=== PATIENT | male | born 1965 | race Caucasian/White ===

== ENCOUNTER 2019-09-05 07:45 | Day surgery (SDC) | payer OTHER ==
[2019-09-05] VITALS (26 sets, daily range): BP systolic 106–144; BP diastolic 37–87
[~2019-09-05] VITALS: Ht 188 cm; Wt 73.5 kg
[2019-09-05] MEDS ORDERED: MULT-1085 PO (08:30)
[2019-09-05] MEDS ORDERED: CHOL500049 PO (08:30)
[2019-09-05] MEDS ORDERED: CYAN500T63 PO (08:30)
[2019-09-05] MEDS ORDERED: ACET325T55 PO (08:30)
[2019-09-05] MEDS ORDERED: HYDR12.55 PO (08:30)
[2019-09-05] MEDS ORDERED: LISI-600 PO (08:30)
[2019-09-05] MEDS ORDERED: codeine PO (08:30)
[2019-09-05] MEDS ORDERED: ROSU20TA2 PO (08:30)
[2019-09-05] MEDS ORDERED: DIPH50CA3 PO (08:30)
[2019-09-05] MEDS ORDERED: normal saline 1000ml 1,000 ML IV SCH (08:30)
[2019-09-05 09:22] LABS: ALBUMIN 3.7 G/DL (3.4-5.0); ANION GAP 9 (8-16); BASOPHILS # (AUTO) 0.1 X10'3 (0-0.2); BASOPHILS % (AUTO) 1.2 % (0-1); BLOOD UREA NITROGEN 24 MG/DL (7-18); BUN/CREATININE RATIO 16.2 (5.4-32.0); CALCIUM 9.4 MG/DL (8.5-10.1); CHLORIDE 108 MMOL/L (99-107); CREATININE 1.48 MG/DL (0.60-1.10); EOSINOPHILS # (AUTO) 0.2 X10'3 (0-0.9); EOSINOPHILS % (AUTO) 2.3 % (0-6); GLUCOSE 92 MG/DL (70-104); HEMATOCRIT 35.2 % (42.0-52.0); LYMPHOCYTES # (AUTO) 2.6 X10'3 (1.1-4.8); LYMPHOCYTES % (AUTO) 34.1 % (21-51); MEAN CORPUSCULAR HEMOGLOBIN 29.9 PG (27.0-31.0); MEAN CORPUSCULAR VOLUME 87.8 FL (78-98); MEAN PLATELET VOLUME 8.2 FL (7.4-10.4); MONOCYTES # (AUTO) 0.5 X10'3 (0-0.9); MONOCYTES % (AUTO) 6.9 % (2-12); NEUTROPHILS # (AUTO) 4.2 X10'3 (1.8-7.7); NEUTROPHILS % (AUTO) 55.5 % (42-75); PLATELET COUNT 261 X10'3 (140-440); POTASSIUM 3.9 MMOL/L (3.5-5.1); RED BLOOD COUNT 4.01 X10'6 (4.70-6.10); RED CELL DISTRIBUTION WIDTH 17.5 % (11.5-14.5); SODIUM 141 MMOL/L (135-145); TOTAL CARBON DIOXIDE 24.2 MMOL/L (24-32); WHITE BLOOD COUNT 7.5 X10'3 (4.5-11.0); eGFR 49 ML/MIN
--- NOTE | 2019-09-05 09:30 | NUR ---
Pt has NS running at 75ml/hr.
[2019-09-05] MEDS ORDERED: midazolam 2 mg/2 ml injection ONE (09:45)
[2019-09-05] MEDS ORDERED: fentaNYL/PF 50MCG/1 ML 2ML syringe ONE ×3 (09:45→11:02)
[2019-09-05] MEDS ORDERED: sodium chloride 0.45% 1,000 ML IV SCH (09:54)
[2019-09-05 11:00] LABS: ANISOCYTOSIS 1+; PLATELET ESTIMATE NORMAL
[2019-09-05] MEDS ORDERED: potassium CL 10mEq/100ml bag 100 ML IV PRN ×2 (11:40)
[2019-09-05] MEDS ORDERED: magnesium Cl slow-release 64mg tablet PO PRN (11:40)
[2019-09-05] MEDS ORDERED: acetaminophen 325mg tablet PO PRN ×2 (11:40→23:50)
[2019-09-05] MEDS ORDERED: ondansetron/PF 4mg/2ml inj IV PRN (11:40)
[2019-09-05] MEDS ORDERED: magnesium 2GM in 50ml NS 50 ML IV PRN (11:40)
[2019-09-05] MEDS ORDERED: magnesium 4gm in 100ml NS 100 ML IV PRN (11:40)
[2019-09-05] MEDS ORDERED: morphine 2 MG/ML inj. syringe IV PRN (11:40)
[2019-09-05] MEDS ORDERED: potassium Cl 20 mEq SR tablet PO PRN ×2 (11:40)
[2019-09-05] MEDS ORDERED: ACET-1059 PO (11:49)
--- NOTE | 2019-09-05 11:58 | NUR ---
pt returned to floor with chest tube connected to L Lateral chest, Drsg CD&I. no s/s of bleeding. pt hooked to Low continuous suction per MD. Pt sitting up in bed. VS stable as charted. pt has NS running at 75ml/hr as ordered. Pt requesting his breakfast which I will bring to him and continue to monitor.
[2019-09-05] MEDS: HYDROcodone/acetaminophen 5mg/325mg tablet PO PRN ×2 (12:24→19:46)
--- NOTE | 2019-09-05 13:08 | NUR ---
Dr. Mccullough at bedside.
--- NOTE | 2019-09-05 13:10 | NUR ---
Called to give report on Medical, Charge states assigned RN will call back.
[2019-09-05] MEDS ORDERED: LISI10TA4 PO (13:21)
[2019-09-05] MEDS ORDERED: CHOL100025 PO (13:29)
[2019-09-05] MEDS: normal saline 1000ml 1,000 ML IV SCH ×2 (13:50→21:02)
--- NOTE | 2019-09-05 14:09 | NUR ---
Called back to give report, was told RNRashmi would call me back in 5 min.
--- NOTE | 2019-09-05 14:27 | NUR ---
Problems reprioritized. Patient report given, questions answered & plan of care reviewed with Rashmi TRONCOSO.
--- NOTE | 2019-09-05 14:33 | NUR ---
I have received report from KARYNA Mcghee from [facility] stay and had the opportunity to ask questions and assume patient care.
--- NOTE | 2019-09-05 18:43 | NUR ---
Patient in room [facility]. I have received report from Ny TRONCOSO and had the opportunity to ask questions and assume patient care.
--- NOTE | 2019-09-05 19:10 | NUR ---
Problems reprioritized. Patient report given, questions answered & plan of care reviewed with KARYNA Vázquez. Pt resting comfortably. C/O chest pain, medicated PRN with good result. chest tube in place dressing clean and dry, less than 10 ml of serosanguineous fluids collected; no SOB noted.
[2019-09-05] MEDS: K and/or MAG REPLACEMENT MC SCH (20:00)
[2019-09-05] MEDS ORDERED: acetaminophen w/codeine (30MG) #3 tablet PO PRN (23:50)
[2019-09-05] MEDS ORDERED: diphenhydrAMINE 25mg capsule PO PRN (23:50)
[2019-09-06] VITALS: BP 143/80
[2019-09-06] MEDS: HYDROcodone/acetaminophen 5mg/325mg tablet PO PRN ×2 (05:35→11:39)
[2019-09-06 06:15] LABS: BASOPHILS # (AUTO) 0.1 X10'3 (0-0.2); BASOPHILS % (AUTO) 1.2 % (0-1); EOSINOPHILS # (AUTO) 0.2 X10'3 (0-0.9); EOSINOPHILS % (AUTO) 2.3 % (0-6); HEMATOCRIT 34.5 % (42.0-52.0); HEMOGLOBIN 11.8 g/dl (14.0-17.9); LYMPHOCYTES # (AUTO) 2.3 X10'3 (1.1-4.8); LYMPHOCYTES % (AUTO) 26.6 % (21-51); MEAN CORPUSCULAR HEMOGLOBIN 29.7 PG (27.0-31.0); MEAN CORPUSCULAR HGB CONC 34.2 g/dL (33.0-36.5); MEAN CORPUSCULAR VOLUME 86.8 FL (78-98); MEAN PLATELET VOLUME 7.9 FL (7.4-10.4); MONOCYTES # (AUTO) 0.5 X10'3 (0-0.9); MONOCYTES % (AUTO) 6.3 % (2-12); NEUTROPHILS # (AUTO) 5.5 X10'3 (1.8-7.7); NEUTROPHILS % (AUTO) 63.6 % (42-75); PLATELET COUNT 243 X10'3 (140-440); RED BLOOD COUNT 3.97 X10'6 (4.70-6.10); RED CELL DISTRIBUTION WIDTH 17.6 % (11.5-14.5); WHITE BLOOD COUNT 8.6 X10'3 (4.5-11.0)
[2019-09-06 06:19] LABS: ALBUMIN 3.4 G/DL (3.4-5.0); ANION GAP 11 (8-16); BLOOD UREA NITROGEN 19 MG/DL (7-18); BUN/CREATININE RATIO 15.3 (5.4-32.0); CALCIUM 9.4 MG/DL (8.5-10.1); CHLORIDE 107 MMOL/L (99-107); CREATININE 1.24 MG/DL (0.60-1.10); GLUCOSE 82 MG/DL (70-104); POTASSIUM 3.9 MMOL/L (3.5-5.1); SODIUM 140 MMOL/L (135-145); TOTAL CARBON DIOXIDE 22.4 MMOL/L (24-32); eGFR 61 ML/MIN
--- NOTE | 2019-09-06 06:24 | NUR ---
Patient in room [facility]. I have received report from KARYNA Swann and had the opportunity to ask questions and assume patient care.
--- NOTE | 2019-09-06 06:26 | NUR ---
Problems reprioritized. Patient report given, questions answered & plan of care reviewed with Eloisa TRONCOSO.
[2019-09-06 08:00] VITALS: BP 138/87
[2019-09-06] MEDS ORDERED: cyanocobalamin 500mcg tablet PO SCH (08:00)
[2019-09-06] MEDS ORDERED: multivitamins, therapeutics tablet PO SCH (08:00)
[2019-09-06] MEDS ORDERED: HYDROchlorothiazide 12.5mg capsule PO SCH (08:00)
[2019-09-06] MEDS: K and/or MAG REPLACEMENT MC SCH (08:00)
[2019-09-06] MEDS ORDERED: vitamin D (cholecalciferol) 1,000 unit tablet PO SCH (08:00)
[2019-09-06] MEDS ORDERED: atorvastatin 20mg tablet PO SCH (08:00)
[2019-09-06] MEDS ORDERED: lisinopril 10 MG tablet PO SCH (08:00)
--- NOTE | 2019-09-06 10:11 | NUR ---
Chest tube clamped at 0950 per MD orders.
[2019-09-06] MEDS: normal saline 1000ml 1,000 ML IV SCH (11:41)
--- NOTE | 2019-09-06 11:56 | NUR ---
Chest tube removed by SHEFALI Gutierrez. Pt tolerated procedure well. Pain med given post procedure. will cont. to monitor.
[2019-09-06 12:00] VITALS: BP 143/88
--- NOTE | 2019-09-06 17:07 | NUR ---
Pt D/C'd per Dr Stoll in stable conditions. No c/o pain or SOB noted. PIV removed with intact cannula. Discharge and medication instructions given. Pt was escorted to main lobby walking with cane. Left the hospital via taxi.
== END 2019-09-06 16:20 | disposition home or self-care (01) ==
LOC: SSTAY O 07:45 → SUR 3N 14:45 → SSTAY O 09-06 16:20
PROVIDERS: ATTEND Radiology Diagnostic Radiology
DX: R91.1 Solitary pulmonary nodule (principal); C64.1 Malignant neoplasm of right kidney, except renal pelvis; C78.02 Secondary malignant neoplasm of left lung; I10 Essential (primary) hypertension; Z79.01 Long term (current) use of anticoagulants; Z79.899 Other long term (current) drug therapy; Z98.890 Other specified postprocedural states; Z87.891 Personal history of nicotine dependence; Z90.5 Acquired absence of kidney; Z11.59 Encounter for screening for other viral diseases
CPT/HCPCS: 32405; 32557; 36415; 71045; 77012; 80048; 83735; 85025; 85610; 87081; 87635; J2250; J2270; J3010; J7030; G0378